=== PATIENT | female | born 1980 | race American Indian/Alaskan Native ===

== ENCOUNTER 2016-11-04 09:07 | Outpatient (CLI) | payer SELFPAY ==
[2016-11-04 09:46] VITALS: BP 127/77
== END 2016-11-04 11:08 | disposition home or self-care (01) ==
LOC: TRG 09:07
PROVIDERS: ATTEND Obstetrics & Gynecology
DX: O09.523 Supervision of elderly multigravida, third trimester (principal); O47.03 False labor before 37 completed weeks of gestation, third trimester; Z3A.34 34 weeks gestation of pregnancy
CPT/HCPCS: 59025

== ENCOUNTER 2016-11-05 00:21 | Inpatient (IN) | payer OTHER ==
[2016-11-05] MEDS ORDERED: LACTATED RINGERS 500 ML IV ONE (00:52)
--- NOTE | 2016-11-05 03:04 | Ultrasound Report ---
FINAL REPORT PROCEDURE: US OB \T\gt; = 14 WEEKS FETUS TECHNIQUE: Real-time transabdominal sonography of the uterus, placenta, amniotic fluid, adnexa, and fetus was performed with image documentation. Measurements were obtained to determine age/size. M-mode Doppler was used to document heartbeat. CPT 88560 HISTORY: no care COMPARISON: No prior studies are available for comparison. FINDINGS: ADDITIONAL GESTATION: None. GENERAL: IUP: Single living intrauterine . Position: Cephalic Placental position: Posterior, without previa. Amniotic fluid volume: Normal. MATERNAL: Uterus: Within normal limits. Internal Os: The cervix is not well visualized on this study.. FETUS: Heart rate and rhythm: 151 beats per minute anatomic survey: Not incomplete evaluation. The stomach, kidneys, bladder, diaphragm, three-vessel cord and cisterna magna are noted. The spine is not well imaged. MEASUREMENTS: BPD: 8.5 centimeter HC: 31.7 centimeter AC: 30.1 centimeter FL: 6.7 centimeter Mean Gestational Age (composite criteria): 34 weeks 5 days Ratio biometry: Normal. Estimated Weight: 2441 grams. Interval growth: No prior studies Estimated Due Date (earliest scan): 12/12/2016 IMPRESSION: Single intrauterine gestation at 34 weeks 5 days. Estimated due date: 12/12/2016. The cervix is not well visualized on this study. Further evaluation may be required in this region. The anomaly screen is not completed due to the positioning of the fetus. No prior studies are available for review.
[2016-11-05] MEDS ORDERED: MINERAL OIL PO PRN (03:20)
[2016-11-05] MEDS ORDERED: POLYCILLIN/NS 2 GM/100 ML 2 GM/100 ML BAG IV ONE (03:20)
[2016-11-05] MEDS ORDERED: ePHEDrine SULFATE IV PRN (03:20)
[2016-11-05] MEDS ORDERED: XYLOCAINE 2% INFILTRATI ONE (03:20)
[2016-11-05] MEDS ORDERED: BRETHINE SUB-Q PRN (03:20)
[2016-11-05] MEDS ORDERED: ZOFRAN IV PRN (03:20)
[2016-11-05 03:47] LABS: Basophils % (Auto) 0.6 % (0.0-1.8); Eosinophils % (Auto) 1.9 % (0.0-4.3); Hematocrit 33.2 % (30.3-42.9); Mean Corpuscular HGB Conc 33 % (30-34); Mean Corpuscular Hemoglobin 27 pg (28-32); Mean Corpuscular Volume 81 fl (79-97); Platelet Count 229 K/mm3 (140-440); Red Blood Count 4.12 M/mm3 (3.65-5.03); White Blood Count 7.1 K/mm3 (4.5-11.0)
--- NOTE | 2016-11-05 03:52 | History and Physical Report ---
History of Present Illness Date of examination: 11/05/16 (pt arrived to Triage with c/o ROM) Date of admission: 11/05/16 02:48 Chief complaint: water broke today clear fluid History of present illness: 36yo No care with this . Pt states her EDC 12-10-16 is based on her LMP which was 18-16 Pregnancies: 1. 2000 TAB @ 6weeks 2. 2007 male 7-8 37 weeks [facility] 3. 2008 female 5-5 @ 40 weeks [facility] 4. 2010 male 5-6 @ 35 weeks PPROM [facility] 5. 2012 male 7-9 @ 40 weeks [facility] delivered in ambulance enroute to [facility] 6. 2014 female 7-8 @ 40 weeks [facility] delivered in ambulance enroute to [facility] Medical HX: none Surgical HX: none Denies smoking, drinking, drug use. Medication: vitamin Past History - Obstetrical History Expected Date of Delivery: 12/10/16 (based on pt's LMP; confirmed with US today) Actual Gestation: 35 Week(s) 0 Day(s) : 7 Para: 5 Hx # Term Pregnancies: 4 Number of Pregnancies: 1 (PPROM @ 35 weeks) Induced : 1 Number of Living Children: 5 Medications and Allergies Allergies Allergy/AdvReac Type Severity Reaction Status Date / Time No Known Allergies Allergy Verified 05/07/14 05:27 Home Medications Medication Instructions Recorded Confirmed Last Taken Type Docusate Sodium [Colace] 100 mg PO BID PRN #30 capsule 05/08/14 Unknown Rx Ferrous Fumarate [Hemocyte] 324 mg PO QDAY #30 tablet 05/08/14 Unknown Rx Ibuprofen [Motrin 600 MG tab] 600 mg PO Q6H PRN #30 tablet 05/08/14 Unknown Rx Active Meds: Active Medications Betamethasone Acet/Betameth SodPhos (Celestone Soluspan) 12 mg IM ONCE ONE Stop: 11/05/16 04:01 Fentanyl (Sublimaze) 100 mcg IV Q2H PRN PRN Reason: Labor Pain Ampicillin Sodium (Polycillin/Ns 1 Gm/50 Ml) 1 gm in 50 mls @ 100 mls/hr IV Q4H IMANI PRN Reason: Protocol Ampicillin Sodium (Polycillin/Ns 2 Gm/100 Ml) 2 gm in 100 mls @ 100 mls/hr IV ONCE ONE PRN Reason: Protocol Stop: 11/05/16 04:19 Lactated Ringer's (Lactated Ringers) 1,000 mls @ 125 mls/hr IV DIRECT IMANI Oxytocin/Sodium Chloride (Pitocin/Ns 20 Unit/1000ml Drip) 20 units in 1,000 mls @ 125 mls/hr IV DIRECT IMANI Mineral Oil (Mineral Oil) 30 ml PO QHS PRN PRN Reason: Constipation Ondansetron HCl (Zofran) 4 mg IV Q8H PRN PRN Reason: Nausea And Vomiting - Vital Signs Vital signs: Vital Signs Pulse BP 90 130/76 11/05/16 00:44 11/05/16 00:44 Temp Pulse Resp BP Pulse Ox 90 130/76 11/05/16 00:44 11/05/16 00:44 - Physical Exam Breasts: Positive: deferred Cardiovascular: Regular rate, Normal S1, Normal S2 Lungs: Positive: Normal air movement Abdomen: Positive: normal appearance, soft, normal bowel sounds. Negative: distention, tenderness Genitourinary (Female): Positive: normal external genitalia Vulva: both: normal Vagina: Positive: normal moisture. Negative: discharge Cervix: Negative: lesion, discharge Uterus: Positive: normal size, normal contour Adnexa: both: normal Anus/Rectum: Positive: normal perianal skin, heme negative. Negative: rectal mass, hemorrhoids Extremities: Deep Tendon Reflex Grade: Normal +2 - Obstetrical FHR: category 1 Uterine Contraction Monitor Mode: External Cervical Dilatation: 1.5 (clear fluid continues to leak from vagina) Cervical Effacement Percentage: 70 station: -3 Uterine Contraction Pattern: Irregular Uterine Tone Measurement Phase: Resting Uterine Contraction Intensity: Mild Results All other labs normal. Assessment and Plan - Patient Problems (1) 35 weeks gestation of Current Visit: Yes Status: Acute Plan to address problem: BMZ given anticipate delivery (2) No care in current Current Visit: Yes Status: Acute Qualifiers: Trimester: T Plan to address problem: all labs drawn; GBS unknown will treat per protocol; US done confirms EDC (3) premature rupture of membranes Current Visit: Yes Status: Acute Qualifiers: PROM onset of labor timing: P Plan to address problem: BMZ given; NICU consult (4) Anomaly of placenta Current Visit: Yes Status: Acute Qualifiers: Trimester: third trimester Qualified Code(s): O43.103 - Malformation of placenta, unspecified, third trimester Plan to address problem: Based on US done @ time of admission noted possible accessory lobe in anterior uterus; and possible amniotic band free floating above baby
[2016-11-05] MEDS ORDERED: CELESTONE SOLUSPAN IM ONE (04:00)
[2016-11-05] MEDS ORDERED: LACTATED RINGERS 1,000 ML IV SCH (04:00)
[2016-11-05 04:30] LABS: HIV-1 Antigen p24 Non React (Non React); HIVR-1/2 Ab Non React (Non React)
--- NOTE | 2016-11-05 05:42 | Progress Note ---
Assessment and Plan Labor progressing SVE 4,70,-2 ISE applied. Pt req pain meds Declines epidural at this time Re-eval as needed - Patient Problems (1) 35 weeks gestation of Current Visit: Yes Status: Acute (2) No care in current Current Visit: Yes Status: Acute Qualifiers: Trimester: T (3) premature rupture of membranes Current Visit: Yes Status: Acute Qualifiers: PROM onset of labor timing: P (4) Anomaly of placenta Current Visit: Yes Status: Acute Qualifiers: Trimester: third trimester Qualified Code(s): O43.103 - Malformation of placenta, unspecified, third trimester Subjective - Subjective Date of service: 11/05/16 (ctx increasing freq) Principal diagnosis: PPROM@ 35 weeks; No Care Interval history: 36yo No care with this . Pt states her EDC 12-10-16 is based on her LMP which was 03-05-16 Pregnancies: 1. 2000 TAB @ 6weeks 2. 2007 male 7-8 37 weeks [facility] 3. 2008 female 5-5 @ 40 weeks [facility] 4. 2010 male 5-6 @ 35 weeks PPROM [facility] 5. 2012 male 7-9 @ 40 weeks [facility] delivered in ambulance enrou to [facility] 6. 2014 female 7-8 @ 40 weeks [facility] Medical HX: none Surgical HX: none Denies smoking, drinking, drug use. Medication: vitamin Patient reports: movement normal Objective - Vital Signs Vital Signs: Vital Signs - 12hr 11/05/16 11/05/16 11/05/16 00:44 04:27 04:30 Temperature 98.6 F Pulse Rate 90 90 91 H Respiratory 18 Rate Blood Pressure 130/76 124/69 O2 Sat by Pulse 97 Oximetry 11/05/16 11/05/16 11/05/16 04:35 04:40 04:45 Temperature Pulse Rate 89 93 H 88 Respiratory Rate Blood Pressure O2 Sat by Pulse 97 97 96 Oximetry 11/05/16 11/05/16 11/05/16 04:50 04:55 05:00 Temperature Pulse Rate 88 94 H 97 H Respiratory Rate Blood Pressure O2 Sat by Pulse 97 98 98 Oximetry 11/05/16 11/05/16 11/05/16 05:05 05:10 05:25 Temperature Pulse Rate 99 H 98 H 104 H Respiratory Rate Blood Pressure O2 Sat by Pulse 97 97 99 Oximetry 11/05/16 11/05/16 05:30 05:35 Temperature Pulse Rate 110 H 103 H Respiratory Rate Blood Pressure O2 Sat by Pulse 98 98 Oximetry - Exam Breasts: deferred Cardiovascular: Regular rate Lungs: Normal air movement Abdomen: Present: normal appearance, soft. Absent: distention, tenderness Uterus: Present: normal FHR: auscultation normal, category 1 Uterine Contraction Monitor Mode: Internal Cervical Dilatation: 4 (ISE applied) Cervical Effacement Percentage: 70 station: -2 Uterine Contraction Frequency (min): q3-5 Uterine Contraction Duration: 40-45 Uterine Contraction Intensity: Moderate Extremities: edema Deep Tendon Reflex Grade: Normal +2 - Labs Labs: Abnormal Labs 11/05/16 03:06 MCH 27 L RDW 16.0 H Seg Neutrophils % 71.7 H Laboratory Results - last 24 hr 11/05/16 11/05/16 11/05/16 03:06 03:06 03:06 WBC 7.1 RBC 4.12 Hgb 11.0 Hct 33.2 MCV 81 MCH 27 L MCHC 33 RDW 16.0 H Plt Count 229 MPV Lymph % (Auto) 19.3 [place] % (Auto) 6.5 Eos % (Auto) 1.9 Baso % (Auto) 0.6 Lymph # 1.4 [place] # 0.5 Eos # 0.1 Baso # 0.0 Seg Neutrophils % 71.7 H Seg Neutrophils # 5.1 Sickle Cell Screen Negative Hep Bs Antigen Hepatitis C Antibody Non-reactive HIV 1&2 Antibody Rapid HIV P24 Antigen Rubella IgG Antibody Immune Blood Type A POSITIVE Antibody Screen TNR JOEY Antibody Screen Negative 11/05/16 11/05/16 03:06 03:06 WBC Cancelled RBC Cancelled Hgb Cancelled Hct Cancelled MCV Cancelled MCH Cancelled MCHC Cancelled RDW Cancelled Plt Count Cancelled MPV Cancelled Lymph % (Auto) [place] % (Auto) Eos % (Auto) Baso % (Auto) Lymph # [place] # Eos # Baso # Seg Neutrophils % Seg Neutrophils # Sickle Cell Screen Hep Bs Antigen Non-reactive Hepatitis C Antibody HIV 1&2 Antibody Rapid Non react HIV P24 Antigen Non react Rubella IgG Antibody Blood Type Antibody Screen JOEY Antibody Screen
[2016-11-05] MEDS: SUBLIMAZE IV PRN ×2 (05:49→09:01)
[2016-11-05] MEDS ORDERED: PITOCin/NS 30 UNIT/500ML 30 UNITS/500 ML BAG IV SCH (07:00)
[2016-11-05 07:06] LABS: Urine Drugs of Abuse Note Disclamer
[2016-11-05] MEDS ORDERED: POLYCILLIN/NS 1 GM/50 ML 1 GM/50 ML BAG IV SCH (07:21)
--- NOTE | 2016-11-05 07:33 | Event Note ---
Date: 11/05/16 rare ctx noted on toco, patient denies feeling pain or pressure. Limit SVE d/t PPROM. Plan for pitocin. anticipate .
[2016-11-05 07:41] LABS: Bilirubin,Urine NEG (Negative); Blood,Urine LG (Negative); Ketones,Urine 80 mg/dL (Negative); Leukocyte Esterase,Urine TR (Negative); Mucus,Urine 1+ /HPF; Nitrite,Urine NEG (Negative); Urobilinogen,Urine < 2.0 mg/dL (<2.0)
[2016-11-05] MEDS: PITOCin/NS 20 UNIT/1000ML DRIP 20 UNITS/1,000 ML BAG IV SCH ×2 (09:37→10:45)
--- NOTE | 2016-11-05 09:50 | Procedure Note ---
OB Delivery Note - Delivery Date of Delivery: 11/05/16 (PTD, - female) Software Development Test Engineer: VELIA CHUN Estimated blood loss: 200cc - Vaginal Delivery presentation: vertex Delivery position: OA Intrapartum events: no care, labor-<37 weeks, PROM->1hr before delivery Delivery induction: none Delivery augmentation: pitocin Delivery monitor: external uterine, internal FHT Route of delivery: Delivery placenta: spontaneous Delivery cord: 3 umbilical vessels Episiotomy: none Delivery laceration: none Anesthesia: none Delivery comments: female del over intact perineum, 3 vessel cord clamped and cut and handed off to nursing staff at warmer d/t gestation. Placenta del intact and complete, pit to IVF. no lacerations to repair. EBL 200, infant's weight 4# 13, apgars 8/9. mother and LDR stable. - Infant A at 1 minute: 8 at 5 minutes: 9 Infant Gender: Female (4#13)
[2016-11-05] MEDS ORDERED: TUCKS PAD TP PRN (11:23)
[2016-11-05] MEDS ORDERED: SODIUM CHLORIDE FLUSH SYRINGE 10 ML IV NR (11:23)
[2016-11-05] MEDS ORDERED: NORCO 5/325 PO PRN (11:23)
[2016-11-05] MEDS ORDERED: PHENERGAN PO PRN (11:23)
[2016-11-05] MEDS ORDERED: DULCOLAX PR PRN (11:23)
[2016-11-05] MEDS ORDERED: LANSINOH TP PRN (11:23)
[2016-11-05] MEDS ORDERED: PITOCin/NS 20 UNIT/1000ML DRIP 20 UNITS/1,000 ML BAG IV SCH (11:23)
[2016-11-05] MEDS ORDERED: TYLENOL PO PRN (11:23)
[2016-11-05] MEDS ORDERED: BENADRYL PO PRN (11:23)
[2016-11-05] MEDS ORDERED: MILK OF MAGNESIA PO PRN (11:23)
[2016-11-05] MEDS: PRENATAL VITAMIN PO SCH (12:36)
[2016-11-05] MEDS: COLACE PO SCH ×2 (12:36→21:41)
[2016-11-05] MEDS: MOTRIN PO SCH ×3 (12:36→23:59)
[2016-11-05 23:35] LABS: Hematocrit 29.1 % (30.3-42.9); Hemoglobin 9.5 gm/dl (10.1-14.3)
[2016-11-06] MEDS: MOTRIN PO SCH ×3 (05:49→23:29)
[2016-11-06] MEDS ORDERED: BOOSTRIX IM ONE (06:00)
--- NOTE | 2016-11-06 12:49 | Progress Note ---
Assessment and Plan - Patient Problems (1) delivery, delivered Current Visit: Yes Status: Acute Plan to address problem: -routine pp care -d/c home in am Subjective - Subjective Date of service: 11/06/16 Principal diagnosis: PPD #1 s/p after PPROM Interval history: Pt doing well. She would like to stay in house as still NICU not cleared for d/c at this time. She has no c/o pain. Patient reports: appetite normal, voiding normally, ambulating normally [place]: in NICU Objective - Vital Signs Latest vital signs: Vital Signs Temp Pulse Pulse Resp BP 11/06/16 08:00 98.5 F 83 18 104/54 11/06/16 00:00 98.9 F 86 86 20 116/57 11/05/16 20:20 98.7 F 77 77 20 114/58 11/05/16 17:57 18 11/05/16 16:50 98.3 F 90 90 18 110/56 11/05/16 12:50 97.8 F 78 18 122/59 Intake and Output 11/05/16 11/06/16 11/06/16 22:59 06:59 14:59 Intake Total 360 120 480 Output Total 800 Balance -440 120 480 Intake: Oral 120 360 Intake, Free Water 360 120 Output: Urine 800 Void 800 Other: Total, Intake Amount 120 360 Total, Output Amount 800 # Voids Void 1 1 1 # Bowel Movements 0 - Exam Cardiovascular: Present: Normal S1, Normal S2 Lungs: Present: Clear to auscultation, Normal air movement Abdomen: Present: normal appearance, soft, normal bowel sounds. Absent: distention, tenderness, guarding Uterus: Present: normal, firm, fundal height below umbilicus. Absent: bogginess , tenderness Extremities: Present: normal. Absent: tenderness, edema Deep Tendon Reflex Grade: Normal +2 - Labs Labs: Abnormal lab results 11/05/16 Range/Units 23:02 Hgb 9.5 L (10.1-14.3) gm/dl Hct 29.1 L (30.3-42.9) %
[2016-11-06] MEDS: COLACE PO SCH ×2 (14:16→23:29)
[2016-11-06] MEDS: PRENATAL VITAMIN PO SCH (14:16)
[2016-11-07] MEDS: MOTRIN PO SCH ×2 (06:12→13:01)
[2016-11-07] MEDS: PRENATAL VITAMIN PO SCH (13:00)
[2016-11-07] MEDS: COLACE PO SCH (13:00)
--- NOTE | 2016-11-07 13:05 | Discharge Summary ---
Providers - Providers Date of Admission: 11/05/16 02:48 Date of discharge: 11/07/16 Attending physician: LUIS HOBBS 11/05/16 11:23 Consult to Case Management [CONS] Routine Services Needed at Discharge: Belt Notcher Notified:: Rachel Phone number called:: [phone] Was contact made?: Yes If yes, spoke with:: Rachel Time called:: 14:31 Comment:: no care Primary care physician: LUIS HOBBS Hospitalization Reason for admission: other (see h&h) Delivery: Procedure details: see delivery note Laceration: other (see delivery note) Other procedures: none complications: none Discharge diagnosis: delivery baby: female Condition at discharge: Good Disposition: DC-01 TO HOME OR SELFCARE - Discharge Diagnoses (1) delivery, delivered Status: Acute Plan - Provider Discharge Summary Additional instructions: [] Smoking cessation referral if applicable(refer to patient education folder for contact #) [] Refer to [facility] Booklet Call your doctor immediately for: * Fever > 100.5 * Heavy vaginal bleeding ( >1 pad per hour) * Severe persistent headache * Shortness of breath * Reddened, hot, painful area to leg or breast * Drainage or odor from incision. * Keep incision clean and dry at all times and follow doctor's instructions regarding bathing/showering - Follow up plan Follow up: LUIS HOBBS MD [Primary Care Provider] - 6 Weeks
[2016-11-07 17:44] VITALS: BP 134/68
== END 2016-11-07 16:58 | disposition home or self-care (01) | DRG 775 ==
LOC: TRG 00:21 → LD 02:48 → OB 11:20
PROVIDERS: ADMIT Obstetrics & Gynecology; ATTEND Obstetrics & Gynecology
PROC: 10E0XZZ Delivery of Products of Conception, External Approach (ICD-10-PCS; principal; 2016-11-05)
DX: O60.14X0 Preterm labor third trimester with preterm delivery third trimester, not applicable or unspecified (principal); O42.913 Preterm premature rupture of membranes, unspecified as to length of time between rupture and onset of labor, third trimester; O43.103 Malformation of placenta, unspecified, third trimester; Z3A.35 35 weeks gestation of pregnancy; O09.43 Supervision of pregnancy with grand multiparity, third trimester; Z37.0 Single live birth
CPT/HCPCS: 36415; 76805; 80307; 81001; 85014; 85018; 85025; 85660; 86592; 86706; 86762; 86803; 86850; 86900; 86901; 87806; 88307; 99211; G0463; J0290; J0702; J2590; J3010; J7120